=== PATIENT | male | born 1990 | race American Indian/Alaskan Native ===

== ENCOUNTER 2017-08-22 20:53 | Emergency (ER) | payer OTHER ==
[2017-08-22 21:04] VITALS: BP 154/95; PULSE 70; RESP 20; TEMP 99.3; O2SAT 100
--- NOTE | 2017-08-22 21:07 | C.PDOC ---
History Of Present Illness 26 year old male with no significant PMHx presents to the ED for evaluation of right upper cheek swelling that has gradually developed for 3 days. Patient notes right upper tooth ache intermittently for 1 week. Otherwise, Patient denies recent dental work, fever, chills,headache, dizziness,sore throat, earache, drooling, trismus, dyspnea, shortness of breath, wheezing, abd. pain, N /V, or other complaints at this time. Time Seen by Provider: 08/22/17 20:59 Chief Complaint (Nursing): Dental Pain History Per: Patient History/Exam Limitations: no limitations Onset/Duration Of Symptoms: Days (3 days ) Current Symptoms Are (Timing): Still Present Quality: Positive for: "Pain" Recent travel outside of the [place]: No Past Medical History Reviewed: Historical Data, Nursing Documentation, Vital Signs Vital Signs: Last Vital Signs Temp 99.3 F 08/22/17 21:01 Pulse 70 08/22/17 21:01 Resp 20 08/22/17 21:01 BP 154/95 H 08/22/17 21:01 Pulse Ox 100 08/22/17 21:26 Family History: States: Unknown Family Hx - Social History Hx Tobacco Use: No Hx Alcohol Use: No Hx Substance Use: No - Immunization History Hx Tetanus Toxoid Vaccination: No Hx Influenza Vaccination: No Hx Pneumococcal Vaccination: No Review Of Systems Constitutional: Negative for: Fever, Chills ENT: Positive for: Other (right upper cheek swelling, right upper tooth pain) Respiratory: Negative for: Shortness of Breath Physical Exam - Physical Exam Appears: Well, Non-toxic, No Acute Distress Skin: Warm, Dry, No Rash Head: Normacephalic, No Tenderness Eye(s): bilateral: PERRL Ear(s): Bilateral: Normal Nose: No Flaring, No Discharge Oral Mucosa: Moist, No Drooling, No Trismus Tongue: Normal Appearing Lips: Normal Appearing Teeth: Caries (right upper 1st and 2nd molar large cavities), Tender To Palpation (Right upper 1st-2nd molar) Gingiva: Other (edema, erythema, signs of early abscess to gingiva surrounding right upper 1st and 2nd molar. Mild facial swelling, no cellulitis.) Throat: No Erythema, No Exudate, Other (Uvula midline, no edema.) Neck: Normal ROM, Supple Lymphatic: No Adenopathy Respiratory: No Rales, No Rhonchi, No Wheezing, Other (clear to auscultation bilaterally ) Neurological/Psych: Oriented x3, Normal Speech ED Course And Treatment O2 Sat by Pulse Oximetry: 100 (RA) Pulse Ox Interpretation: Normal Progress Note: Patient was given Cleocin. On re-evaluation, pt is afebrile, hemodynamicaly stable. Non-toxic. Tolerate Po well in ED. PUlseOx 100% RA. Neck : SUpple, (-) meningeal sign. ENT: exam c/w early Right upper tooth abscess, no flactulance. Uvula midline, no edema. NO drooling, no trismus. neck: SUpple , (-) meningeal sign. LUngs: CTA B/L, BS equal B/L. Pt advised. ref. to F/u with Dentist in 2-3 days for re-eavl. return if any new changes. Disposition Counseled Patient/Family Regarding: Diagnosis, Need For Followup, Rx Given - Disposition Referrals: [facility] [Provider Group] [facility] [Provider Group] Disposition: HOME/ ROUTINE Disposition Time: 21:16 Condition: STABLE Additional Instructions: TAKE MEDICATION PRESCRIBED WARM SALTY WATER TOOTH BATHS 2-3 TIMES DAILY FOLLOW UP WITH DENTIST IN 2-3 DAYS FOR RE-EVALUATION. RETURN TO ED IF ANY WORSENING OR NEW CHANGES. Prescriptions: Clindamycin [Cleocin] 300 mg PO Q6 #28 cap traMADol [Ultram] 50 mg PO TID #7 tab Instructions: Dental Abscess (ED) Forms: [employer] (Ivorian) - Clinical Impression Clinical Impression: Dental abscess - PA / [employer] / Resident Statement MD/DO has reviewed & agrees with the documentation as recorded. - Scribe Statement The provider has reviewed the documentation as recorded by the Scribe Kaylie Dimas All medical record entries made by the Scribe were at my direction and personally dictated by me. I have reviewed the chart and agree that the record accurately reflects my personal performance of the history, physical exam, medical decision making, and the department course for this patient. I have also personally directed, reviewed, and agree with the discharge instructions and disposition.
== END 2017-08-22 21:47 | disposition home or self-care (01) ==
LOC: C.ER 20:53
DX: K04.7 Periapical abscess without sinus (principal)